=== PATIENT | female | born 1945 | race Asian ===

== ENCOUNTER 2017-01-12 07:24 | Day surgery (SDC) | payer OTHER ==
[~2017-01-12] VITALS: Ht 317.5 cm; Wt 57.0 kg
[2017-01-12] VITALS (12 sets, daily range): BP systolic 118–138; BP diastolic 43–63; PULSE 62–88; RESP 15–25; Ht 317.5 cm; Wt 57.0 kg
[~2017-01-12 07:24] MED LIST: CEFAZOLIN 2 GM/50 ML (PMX) 50 ML IVPB SCH; EPHEDrine SULFATE 50 MG/5 ML SYG ONE; SOD CHLORIDE 0.9% 1,000 ML IV SCH
[2017-01-12] MEDS ORDERED: LOSA1TAB19 PO (09:14)
[2017-01-12] MEDS ORDERED: AMLO-147 PO (09:15)
[2017-01-12] MEDS ORDERED: ISOSULFAN BLUE 1% 5 ML INJ SC ONE (09:47)
[2017-01-12] MEDS ORDERED: CEFAZOLIN 1 GM INJ ONE (10:02)
[2017-01-12] MEDS ORDERED: MIDAZOLAM 1 MG/ML 2 ML INJ ONE (10:02)
[2017-01-12] MEDS ORDERED: PROPOFOL 20 ML ONE (10:02)
[2017-01-12] MEDS ORDERED: FENTAnyl 50 MCG/ML VIAL ONE ×2 (10:02→10:35)
[2017-01-12] MEDS ORDERED: ACETAMINOPHEN 1000MG/100ML IV 100 ML ONE (10:49)
[2017-01-12] MEDS ORDERED: METOCLOPRAMIDE 10 MG INJ ONE (10:49)
[2017-01-12] MEDS ORDERED: ONDANSETRON 4 MG INJ ONE (10:49)
[2017-01-12] MEDS ORDERED: DEXAMETHASONE 4 MG/ML 1 ML INJ ONE (10:49)
[2017-01-12] MEDS ORDERED: KETOROLAC 30 MG INJ ONE (10:49)
[2017-01-12] MEDS ORDERED: HYDROmorphONE (0.2 MG/ML) 10ML SYG IV PRN ×3 (11:30)
[2017-01-12] MEDS ORDERED: hydrALAzine 20 MG INJ IV PRN (11:30)
[2017-01-12] MEDS ORDERED: ALBUMIN HUMAN 5% 250 ML IV PRN (11:30)
[2017-01-12] MEDS ORDERED: DIPHENHYDRAMINE 50 MG INJ IV PRN (11:30)
[2017-01-12] MEDS ORDERED: METOCLOPRAMIDE 10 MG INJ IV PRN (11:30)
[2017-01-12] MEDS ORDERED: EPHEDrine SULFATE 50 MG/5 ML SYG IV PRN (11:30)
[2017-01-12] MEDS ORDERED: MEPERIDINE 25 MG INJ IV PRN (11:30)
[2017-01-12] MEDS ORDERED: LABETALOL HCL 20MG INJ IV PRN (11:30)
[2017-01-12] MEDS ORDERED: morphine (1 MG/ML) 10ML SYRINGE IV PRN ×3 (11:30)
--- NOTE | 2017-01-12 13:55 | OPR ---
DATE OF OPERATION: 01/12/2017 PREOPERATIVE DIAGNOSIS: Invasive cancer, right breast. POSTOPERATIVE DIAGNOSIS: Invasive cancer, right breast. OPERATION PERFORMED: Right needle-directed partial mastectomy and axillary dissection utilizing sen tinel lymph node technique. ANESTHESIA: General. ANESTHESIOLOGIST: ____ SURGEON: Holger Haskins MD DIRECTOR OF LAND: Dave Rendon MD INDICATIONS FOR PROCEDURE: The patient is a 71-year-old female who underwent screening mammography and was found to have a suspicious lesion in her right breast. Subsequent core biopsy demonstrated invasive cancer. She was counseled as to the risks versus benefits of breast conservation surgery w ith right needle-directed partial mastectomy and axillary dissection utilizing sentinel lymph node t echnique. She consented and was scheduled for surgery. DESCRIPTION OF PROCEDURE: On the morning of surgery, the patient presented to [facility] where she underwent localization of the lesion performed by attending radiologis t, Dr. Stephanie Colon. Subsequently, she was brought to the operating theater, placed under genera l anesthesia. The right breast was prepped and draped in the usual sterile fashion. Approximately 4 mL of 1% Lymphazurin blue dye were then injected peritumorally. The breast was gently massaged fo r approximately 12 minutes. Subsequently, a 3 to 4 cm incision was made in the right axillary hairl ine. Subcutaneous tissue was dissected with cautery down through the clavipectoral fascia. Dye-sta ined lymphatic was identified and traced to a sentinel node. There were some additional nodes locat ed in this area. Decision was made to resect the sentinel node and some additional nodes. This was done by using blunt dissection along the chest wall. We identified the long thoracic nerve and kep t it out of harm's way. More superiorly, the axillary vein and thoracodorsal neurovascular bundle w ere identified and kept out of harm's way. The sentinel nodes, some additional axillary tissue rese cted with the LigaSure device. Specimen was sent for intraoperative analysis, sentinel node was neg ative for evidence of metastatic disease. Therefore, no further nodes were taken. The wound was ir rigated. Minimal bleeding was controlled with cautery and the skin was reapproximated with 4-0 Lucas ryl suture in subcuticular fashion. Attention was directed performing the partial mastectomy. A cu rvilinear incision in the region of the previously placed localization wire, which was at approximat isela the 2 o'clock location, approximately 4 to 5 cm from the nipple-areolar border. Subcutaneous ti ssue was dissected with cautery. The skin edges were then elevated with skin hooks. Wide circumfer ential dissection of the tissue associated with the wire then took place, taking great care to ensur e adequate margin. Specimen was elevated and transected, oriented and sent for intraoperative anam sis of margins, which was performed by attending pathologist, Dr. Aung Durant. Margins were xiomara ssly clear. Therefore, the specimen was sent for permanent pathologic analysis. The wound was irri gated. Minimal bleeding was controlled with cautery, and the skin was then reapproximated with a 4- 0 Vicryl suture in subcuticular fashion. Dermabond was then applied to both incisions. The patient tolerated procedure well. The estimated blood loss was 20 mL. There were no complications and the patient was transported in stable condition to the recovery room. Dictated By: HOLGER HASKINS MD TL/CAREY Conf#: [id number] DID#: [id number] CC: DAVE RENDON MD;*EndCC*
== END 2017-01-12 13:45 | disposition home or self-care (01) ==
LOC: SDS 07:24
PROVIDERS: ATTEND Surgery Surgical Oncology
DX: C50.911 Malignant neoplasm of unspecified site of right female breast (principal); I10 Essential (primary) hypertension
CPT/HCPCS: 19301; 38500; 38792; 88300; 88307; 88309; 88313; 88331; J0131; J0690; J1100; J1170; J1885; J2250; J2405; J2765; J3010; Z7512; Z7610; Q9968